=== PATIENT | male | born 1940 ===

== ENCOUNTER → 2017-02-26 | Outpatient (CLI) | payer MEDICARE, BC ==
--- NOTE | ~2017-02-26 | CST ---
Cardiac Perfusion Imaging Demographics Patient Name PADMA Edouard Gender Male Patient Number [id number] Race Other Visit Number [id number] Ethnicity or Corporate ID Room Number Accession Number [id number] Height 66 inches Date of 1940 Weight 156 pounds Age 77 year(s) BSA 1.8 m Referring Physician Rica Alcala MD BMI 25.18 kg/m [facility] [place] Date of study 02/26/2017 Physician Radiology Zoe Zambrano MD Supervising MD/MLP Rica Alcala MD NM Technologist Maurice Connelly Ordering Physician Rica Alcala MD Stress pump technician Stress ECG Reading Rica Alcala MD Nurse Greta Etienne Physician Mahesh De La Cruz The procedure was explained in detail to the patient. Risks, complications and alternative treatments were reviewed. Written consent was obtained. Medications Reviewed with Patient prior to Procedure. Procedure Procedure Type: Nuclear Stress Test:Exercise, Cardiac Study SF Procedure Start time: 02/26/2017 07:30 Indications: Chest discomfort and Family history of coronary artery disease. Risk Factors The patient risk factors include:family history of premature CAD. Conclusions Summary Perfusion Images: The overall quality of the study is good. Left ventricular cavity is noted to be normal on the stress and rest studies. There is no evidence of abnormal lung activity. The right ventricle is not visualized and cannot be assessed. Slightly diminished inferior wall radiotracer activity on stress images, diaphragm artifact vs mild myocardial ischemia. Stress SPECT images demonstrate otherwise homogenous tracer distribution throughout the myocardium. Rest SPECT images demonstrate homogenous tracer distribution throughout the myocardium. Gated SPECT imaging reveals normal myocardial thickening and wall motion. The left ventricular ejection fraction was calculated to be 61%. Impression 1. Slightly diminished inferior wall radiotracer activity on stress images, diaphragm artifact vs mild myocardial ischemia. Consider clinical correlation and additional testing as clinically warranted. 2. Normal left ventricular systolic function with an ejection fraction of 61 %. Stress Protocols Resting HR:53 bpm Resting BP:124/82 mmHg Stress Protocol:Exercise Peak HR:129 bpm HR/BP product:[id number] Peak BP:186/90 mmHg Predicted HR: 145 bpm % of predicted HR: 89 Test duration:05:25 min Reason for termination:Target heart rate ECG Findings Normal sinus rhythm. Symptoms No cardiovascular symptoms with maximal exercise. Complications Procedure complication: None. Stress Interpretation Negative stress ECG for ischemia. Normal heart rate and blood pressure response to stress. No atrial or ventricular arrhythmias. No chest pain with exercise. Imaging Results Summed scores - Summed stress score: 0 - Summed rest score: 0 - Summed difference score: 0 Stress ejection Ejection fraction:60 % EDV :103 ml ESV :41 ml Stroke volume :62 ml LV mass :129 gr Imaging Protocols Rest Stress Isotope:Tc99m Myoview IV Isotope: Tc99m Myoview IV Isotope dose:10.2 mCi Isotope dose:30.8 mCi Date:02/26/2017 06:15 Date:02/26/2017 07:30 Technique: SPECT Technique: Gated Supine SPECT Supine Scan Time:30 minutes post injection Scan Time:15-30 minutes post injection Medical History Admission Data Admission date: 02/26/2017 Admission Time: 05:58 Hospital Status: Outpatient. Signatures
== END | disposition home or self-care (01) ==
LOC: CARD 05:58
DX: R07.9 Chest pain, unspecified (principal)